=== PATIENT | male | born 1990 | race American Indian/Alaskan Native ===

== ENCOUNTER 2019-08-06 17:27 | Emergency (ER) | payer SELFPAY ==
[2019-08-06 17:32] VITALS: BP 131/81
[2019-08-06] MEDS ORDERED: ALBUTEROL 2.5 MG/3 ML NEBU IH ONE ×2 (18:05→18:06)
[2019-08-06] MEDS ORDERED: IPRATROPIUM 0.02% NEBU 2.5 ML IH ONE ×2 (18:06)
[2019-08-06] MEDS ORDERED: predniSONE 20 MG TAB PO ONE (18:36)
--- NOTE | 2019-08-06 19:02 | Emergency Department Report ---
ED Asthma HPI - General Chief Complaint: Adult Asthma Stated Complaint: ASTHMA ATTACK Time Seen by Provider: 08/06/19 18:35 Source: patient Mode of arrival: Ambulatory Limitations: No Limitations - History of Present Illness Initial Comments: Patient is a 29-year-old male with a past medical history of asthma who is presenting with wheezing and shortness of breath. Patient does have a minimal dry cough. Patient states symptoms have been present for the past 2-3 days. Patient states he's run out of his albuterol for his nebulizer machine as well as his albuterol inhaler. Patient believes that the weather may have been a trigger for his asthma. He denies fevers nausea vomiting diarrhea or neck stiffness. - Related Data Previous Rx's Medication Instructions Recorded Last Taken Type ALBUTEROL NEB's [Proventil 0.083% 2.5 mg IH TID PRN #20 neb 08/06/19 Unknown Rx NEBS] Albuterol INH(or & Nicu Only) 2 puff IH QID PRN #1 inhalation 08/06/19 Unknown Rx [ProAir HFA Inhaler] predniSONE [Deltasone] 20 mg PO QDAY #5 tab 08/06/19 Unknown Rx Allergies Allergy/AdvReac Type Severity Reaction Status Date / Time No Known Allergies Allergy Unverified 08/06/19 17:36 ED Review of Systems ROS: Stated complaint: ASTHMA ATTACK Other details as noted in HPI Comment: All other systems reviewed and negative ED Past Medical Hx - Past Medical History Hx Asthma: Yes - Surgical History Past Surgical History?: No - Social History Smoking Status: Never Smoker Substance Use Type: Alcohol - Medications Home Medications: Home Medications Medication Instructions Recorded Confirmed Last Taken Type ALBUTEROL NEB's [Proventil 0.083% 2.5 mg IH TID PRN #20 neb 08/06/19 Unknown Rx NEBS] Albuterol INH(or & Nicu Only) 2 puff IH QID PRN #1 inhalation 08/06/19 Unknown Rx [ProAir HFA Inhaler] predniSONE [Deltasone] 20 mg PO QDAY #5 tab 08/06/19 Unknown Rx ED Physical Exam - General Limitations: No Limitations General appearance: alert, in no apparent distress - Head Head exam: Present: atraumatic, normocephalic - Eye Eye exam: Present: normal appearance, PERRL, EOMI - ENT ENT exam: Present: mucous membranes moist - Neck Neck exam: Present: normal inspection - Respiratory Respiratory exam: Present: normal lung sounds bilaterally, wheezes. Absent: respiratory distress, rales, rhonchi - Cardiovascular Cardiovascular Exam: Present: regular rate, normal rhythm. Absent: systolic murmur, diastolic murmur, rubs, gallop - GI/Abdominal GI/Abdominal exam: Present: soft, normal bowel sounds - Rectal Rectal exam: Present: deferred - Extremities Exam Extremities exam: Present: normal inspection - Back Exam Back exam: Present: normal inspection - Neurological Exam Neurological exam: Present: alert, oriented X3 - Psychiatric Psychiatric exam: Present: normal affect, normal mood - Skin Skin exam: Present: warm, dry, intact, normal color. Absent: rash ED Course Vital Signs 08/06/19 08/06/19 17:30 18:08 Temperature 97.7 F Pulse Rate 138 H Pulse Rate [ 98 H Anterior Bilateral Throughout] Respiratory 32 H Rate Respiratory 18 Rate [Anterior Bilateral Throughout] Blood Pressure 131/81 [Left] O2 Sat by Pulse 95 Oximetry ED Medical Decision Making - Medical Decision Making Received neb treatment here in the emergency department is feeling much improved. Patient to be discharged home with medications for symptomatic relief. Critical care attestation.: If time is entered above; I have spent that time in minutes in the direct care of this critically ill patient, excluding procedure time. ED Disposition Clinical Impression: Acute asthma exacerbation Qualifiers: Asthma severity: moderate Asthma persistence: unspecified Qualified Code(s): J45.901 - Unspecified asthma with (acute) exacerbation Disposition: DC-01 TO HOME OR SELFCARE Is pt being admited?: No Does the pt Need Aspirin: No Condition: Stable Instructions: Asthma (ED) Referrals: SUJIT RHOADES MD [Staff Physician] - 3-5 Days Forms: Work/School Release Form(ED), Accompanied Note Time of Disposition: 19:02
== END 2019-08-06 19:30 | disposition home or self-care (01) ==
LOC: ED 17:27
DX: J45.901 Unspecified asthma with (acute) exacerbation (principal); Z79.899 Other long term (current) drug therapy
CPT/HCPCS: 94640; 99283; J7512; 94644

== ENCOUNTER 2019-10-05 17:31 | Emergency (ER) | payer SELFPAY ==
--- NOTE | 2019-10-05 17:46 | Emergency Department Report ---
Blank Doc - Documentation Documentation: 29-year-old male that presents with fever, tachycardia and URI symptoms. This initial assessment/diagnostic orders/clinical plan/treatment(s) is/are subject to change based on patient's health status, clinical progression and re- assessment by fellow clinical providers in the ED. Further treatment and workup at subsequent clinical providers discretion. Patient/guardians urged not to elope from the ED as their condition may be serious if not clinically assessed and managed. Initial orders include: 1- Patient sent to [facility] for further evaluation and treatment 2- CXR
--- NOTE | 2019-10-05 18:27 | XRay Report ---
CHEST 2 VIEWS INDICATION / CLINICAL INFORMATION: MAIN: COUGH; SUBJECT REPORT OF FEVER HIGHEST 100.2, WEAKNESS, PRODUCTIVE COUGH X 1 WEEK . COMPARISON: None available. FINDINGS: SUPPORT DEVICES: None. HEART / MEDIASTINUM: No significant abnormality. LUNGS / PLEURA: No significant pulmonary or pleural abnormality. No pneumothorax. ADDITIONAL FINDINGS: No significant additional findings. IMPRESSION: 1. No acute findings. Signer Name: Bernard Carvalho MD Signed: 10/05/2019 6:23 PM Workstation Name: [id number]
--- NOTE | 2019-10-05 20:50 | Emergency Department Report ---
Minor Respiratory - HPI Chief Complaint: Upper Respiratory Infection Stated Complaint: COLD SYM Time Seen by Provider: 10/05/19 17:46 Duration: 1 week Severity: mild Minor Respiratory: Yes Rhinorrhea, Yes Able to Tolerate Fluids, Yes Cough, Yes Sick Contacts, Yes Fever, No Sore Throat, No Ear Pain, No Hemoptysis, No Chest Pain, No Shortness of Breath Other History: This is a 29-year-old black male who presents to the emergency room with a productive cough for 1 week. Past medical history of asthma. Patient states he is using nebulizer and inhaler more than usual. States wheezing and fever resolved with treatments and Mucinex. States he cannot get rid of cough. He denies chest pain, wheezing, shortness of breath, nausea, vomiting, myalgia, or weakness. ED Review of Systems ROS: Stated complaint: COLD SYM Other details as noted in HPI Constitutional: denies: chills, fever ENT: denies: ear pain, throat pain Respiratory: cough. denies: shortness of breath, wheezing Cardiovascular: denies: chest pain, palpitations Gastrointestinal: denies: abdominal pain, nausea, diarrhea Musculoskeletal: denies: back pain, joint swelling, arthralgia Skin: denies: rash, lesions Neurological: denies: headache, weakness, paresthesias Psychiatric: denies: anxiety, depression ED Past Medical Hx - Past Medical History Hx Asthma: Yes - Surgical History Past Surgical History?: No - Social History Smoking Status: Never Smoker Substance Use Type: None - Medications Home Medications: Home Medications Medication Instructions Recorded Confirmed Last Taken Type ALBUTEROL NEB's [Proventil 0.083% 2.5 mg IH TID PRN #20 neb 08/06/19 Unknown Rx NEBS] Albuterol INH(or & Nicu Only) 2 puff IH QID PRN #1 inhalation 08/06/19 Unknown Rx [ProAir HFA Inhaler] Benzonatate [Tessalon Perles] 100 mg PO Q8HR PRN #30 capsule 10/05/19 Unknown Rx predniSONE [Deltasone] 20 mg PO QDAY #5 tab 10/05/19 Unknown Rx Minor Respiratory Exam - Exam General: Vital signs noted. No distress. Alert and acting appropriately. HEENT: Yes Moist Mucous Membranes, Yes Rhinorrhea (Mild congestion), No Pharyngeal Erythema, No Pharyngeal Exudates, No Conjuctival Injection, No Frontal Tenderness, No Maxillary Tenderness Ear: Neither TM Bulge, Neither TM Erythema, Neither EAC Pain, Neither EAC Discharge Neck: Yes Supple, No Adenopathy Lungs: Yes Good Air Exchange, No Wheezes, No Ronchi, No Stridor, No Cough, No Labored Respirations, No Retractions, No Use of Accessory Muscles, No Other Abnormal Lung Sounds Heart: Yes Regular, No Murmur Abdomen: Yes Normal Bowel Sounds, No Tenderness, No Peritoneal Signs Skin: No Rash, No Edema Neurologic: Alert and oriented, no deficits. Musculoskeletal: Unremarkable. ED Course Vital Signs 10/05/19 17:36 Temperature 99.6 F Pulse Rate 100 H Respiratory 20 Rate Blood Pressure 145/91 [Left] O2 Sat by Pulse 97 Oximetry ED Medical Decision Making - Radiology Data Radiology results: report reviewed CHEST 2 VIEWS INDICATION / CLINICAL INFORMATION: MAIN: COUGH; SUBJECT REPORT OF FEVER HIGHEST 100.2, WEAKNESS, PRODUCTIVE COUGH X 1 WEEK . COMPARISON: None available. FINDINGS: SUPPORT DEVICES: None. HEART / MEDIASTINUM: No significant abnormality. LUNGS / PLEURA: No significant pulmonary or pleural abnormality. No pneumothorax. ADDITIONAL FINDINGS: No significant additional findings. IMPRESSION: 1. No acute findings. - Medical Decision Making 29 y.o. male that presents with productive cough for 1 week. No distress noted. Vitals normal. Past medical history of h asthma. Patient is otherwise healthy patient with viral upper respiratory symptoms. He denies shortness of breath, chest pain, weakness, headache, or fever. No vocal changes or uvula deviation to be concern for [employer]. There is low suspicion of influenza, pneumonia, strep throat, or sinusitis. Chest x-ray ordered with no acute cardiopulmonary findings. Labs are deferred at this time. There are no indications for antibiotics at this time. Will start supportive medication such as cough suppressant and steroids. Continue using neb treatments and inhaler for symptomatic relief. Instructed to continue [id number] cold and flu medications, increase fluid intake, and wash hands frequently. Discharged home stable with strict return instructions. Follow up with Primary Care Provider in 2-3 days. Return to work tomorrow. Critical care attestation.: If time is entered above; I have spent that time in minutes in the direct care of this critically ill patient, excluding procedure time. ED Disposition Clinical Impression: Cough in adult patient, Nasal congestion with rhinorrhea, Bronchitis Disposition: DC-01 TO HOME OR SELFCARE Is pt being admited?: No Condition: Stable Instructions: Acute Bronchitis (ED) Additional Instructions: Increase fluid intake and rest. Wash hands frequently. Continue taking Tylenol or ibuprofen to control fever. Follow up with Primary Care Provider. Return to ER if fever, SOB, or difficulty breathing after 48 hours of supportive care. Prescriptions: predniSONE [Deltasone] 20 mg PO QDAY #5 tab Benzonatate [Tessalon Perles] 100 mg PO Q8HR PRN #30 capsule PRN Reason: Cough Referrals: [facility] [Outside] - 3-5 Days [facility] [Outside] - 3-[address] [facility] [Outside] - 3-5 Days Forms: Work/School Release Form(ED) Time of Disposition: 20:51
[2019-10-05 21:05] VITALS: BP 136/97
== END 2019-10-05 21:00 | disposition home or self-care (01) ==
LOC: ED 17:31
DX: J40 Bronchitis, not specified as acute or chronic (principal)
CPT/HCPCS: 71046; 99283

== ENCOUNTER 2019-11-14 20:56 | Emergency (ER) | payer SELFPAY ==
[2019-11-14] MEDS ORDERED: methylPREDNISolone Sod Succinate 125 MG/2 ML INJ IV ONE (21:10)
[2019-11-14] MEDS ORDERED: MAGNESIUM SULFATE 2 GM/50 ML BAG IV ONE (21:10)
[2019-11-14] MEDS ORDERED: ALBUTEROL 2.5 MG/3 ML NEBU IH ONE ×2 (21:10→21:13)
[2019-11-14] MEDS ORDERED: IPRATROPIUM 0.02% NEBU 2.5 ML IH ONE ×2 (21:10→21:13)
--- NOTE | 2019-11-14 21:15 | Emergency Department Report ---
ED Shortness of Breath HPI - General Chief Complaint: Dyspnea/Respdistress Stated Complaint: ASTHMA ATTACK Time Seen by Provider: 11/14/19 21:10 Source: patient Mode of arrival: Wheelchair Limitations: No Limitations - History of Present Illness Initial Comments: 29-year-old male with history of asthma presents to ED in respiratory distress. Patient states he was mopping at home with a sweeper and bleach. States inhaling the fumes triggered his asthma. Patient became short of breath. States he attempted to administer a neb treatment at home without relief, so patient came to the ED. Patient denies any coronavirus symptoms, including fever, cough, sore throat, body aches, diarrhea, loss of taste or smell. Patient states he has been quarantining. O2 sat 69% RA at triage. MD Complaint: "asthma attack" -: hour(s) (1) Severity: severe Consistency: constant Improves With: nothing Worsens With: nothing Known History Of: asthma Context: other (chemical exposure) Treatments Prior to Arrival: bronchodilator - Related Data Home Oxygen Therapy: No Previous Rx's Medication Instructions Recorded Last Taken Type ALBUTEROL NEB's [Proventil 0.083% 2.5 mg IH TID PRN #20 neb 08/06/19 Unknown Rx NEBS] Albuterol INH(or & Nicu Only) 2 puff IH QID PRN #1 inhalation 08/06/19 Unknown Rx [ProAir HFA Inhaler] Benzonatate [Tessalon Perles] 100 mg PO Q8HR PRN #30 capsule 10/05/19 Unknown Rx predniSONE [Deltasone] 20 mg PO QDAY #5 tab 10/05/19 Unknown Rx Albuterol Sulfate [Proventil Hfa] 2 puff IH Q4HR PRN #1 hfa.aer.ad 11/14/19 Unknown Rx predniSONE [Deltasone] 50 mg PO QDAY #5 tab 11/14/19 Unknown Rx Allergies Allergy/AdvReac Type Severity Reaction Status Date / Time No Known Allergies Allergy Unverified 08/06/19 17:36 ED Review of Systems ROS: Stated complaint: ASTHMA ATTACK Other details as noted in HPI Comment: All other systems reviewed and negative Constitutional: denies: chills, fever ENT: denies: throat pain, congestion Respiratory: shortness of breath, wheezing. denies: cough Gastrointestinal: denies: vomiting, diarrhea Musculoskeletal: denies: myalgia ED Past Medical Hx - Past Medical History Hx Asthma: Yes - Social History Smoking Status: Never Smoker Substance Use Type: None - Medications Home Medications: Home Medications Medication Instructions Recorded Confirmed Last Taken Type ALBUTEROL NEB's [Proventil 0.083% 2.5 mg IH TID PRN #20 neb 08/06/19 Unknown Rx NEBS] Albuterol INH(or & Nicu Only) 2 puff IH QID PRN #1 inhalation 08/06/19 Unknown Rx [ProAir HFA Inhaler] Benzonatate [Tessalon Perles] 100 mg PO Q8HR PRN #30 capsule 10/05/19 Unknown Rx predniSONE [Deltasone] 20 mg PO QDAY #5 tab 10/05/19 Unknown Rx Albuterol Sulfate [Proventil Hfa] 2 puff IH Q4HR PRN #1 hfa.aer.ad 11/14/19 Unknown Rx predniSONE [Deltasone] 50 mg PO QDAY #5 tab 11/14/19 Unknown Rx ED Physical Exam - General Limitations: No Limitations General appearance: alert, other (diaphoretic) - Head Head exam: Present: atraumatic, normocephalic - Eye Eye exam: Present: normal appearance, EOMI - ENT ENT exam: Present: mucous membranes moist - Neck Neck exam: Present: normal inspection - Respiratory Respiratory exam: Present: respiratory distress, decreased breath sounds (poor air movement) - Cardiovascular Cardiovascular Exam: Present: normal rhythm, tachycardia - GI/Abdominal GI/Abdominal exam: Present: soft. Absent: distended, tenderness - Extremities Exam Extremities exam: Present: normal inspection - Neurological Exam Neurological exam: Present: alert, oriented X3 - Psychiatric Psychiatric exam: Present: anxious - Skin Skin exam: Present: warm, dry, intact, normal color ED Course Vital Signs 11/14/19 11/14/19 11/14/19 21:15 22:33 23:33 Temperature 99 F 98.4 F Pulse Rate 130 H 96 H Pulse Rate [ 123 H Anterior Bilateral Throughout] Respiratory 20 18 Rate Respiratory 16 Rate [Anterior Bilateral Throughout] Blood Pressure 148/88 Blood Pressure 114/61 [Right] O2 Sat by Pulse 92 96 Oximetry - Reevaluation(s) Reevaluation #1: 11/14/19 21:59 Pt looks much better at this time. No longer tachypneic or diaphoretic. Lungs are CTAB, no wheezing or decreased breath sounds. ED Medical Decision Making - Medical Decision Making 29-year-old male with history of asthma presents with asthma exacerbation after inhaling chemicals that he was using to mop the floor. Patient was placed on 1 hour albuterol and Atrovent nebulizer treatment. He was also given a mag sulfate and Solu-Medrol. Patient improved dramatically, with normal O2 sats, a nd resolution of his respiratory distress. Patient currently feeling much better, talking on his cell phone. Will discharge home at this time. Will give prescriptions for prednisone and albuterol. Return precautions given. - Differential Diagnosis asthma exacerbation Critical Care Time: Yes Critical care time in (mins) excluding proc time.: 35 Critical care attestation.: If time is entered above; I have spent that time in minutes in the direct care of this critically ill patient, excluding procedure time. Critical Care Time: 35 min ED Disposition Clinical Impression: Acute asthma exacerbation Disposition: DC-01 TO HOME OR SELFCARE Is pt being admited?: No Condition: Stable Instructions: Asthma (ED) Prescriptions: predniSONE [Deltasone] 50 mg PO QDAY #5 tab Albuterol Sulfate [Proventil Hfa] 2 puff IH Q4HR PRN #1 hfa.aer.ad PRN Reason: Wheezing Referrals: PRIMARY CARE, [Primary Care Provider] - 3-5 Days
[2019-11-14 23:34] VITALS: BP 114/61
== END 2019-11-14 23:34 | disposition home or self-care (01) ==
LOC: ED 20:56
DX: J45.901 Unspecified asthma with (acute) exacerbation (principal); Z79.899 Other long term (current) drug therapy
CPT/HCPCS: 94640; 96365; 96366; 96375; 99283; J2930; J3475; 94644

== ENCOUNTER 2019-11-15 01:51 | Emergency (ER) | payer SELFPAY ==
[2019-11-15] MEDS ORDERED: IPRATROPIUM 0.02% NEBU 2.5 ML IH ONE (02:05)
[2019-11-15] MEDS ORDERED: ALBUTEROL 2.5 MG/3 ML NEBU IH ONE (02:05)
--- NOTE | 2019-11-15 02:10 | Emergency Department Report ---
<MIKE LACKEY - Last Filed: 11/15/19 03:46> ED Shortness of Breath HPI - General Chief Complaint: Dyspnea/Respdistress Stated Complaint: ASTHMA Time Seen by Provider: 11/15/19 02:04 - Related Data Previous Rx's Medication Instructions Recorded Last Taken Type ALBUTEROL NEB's [Proventil 0.083% 2.5 mg IH TID PRN #20 neb 08/06/19 Unknown Rx NEBS] Albuterol INH(or & Nicu Only) 2 puff IH QID PRN #1 inhalation 08/06/19 Unknown Rx [ProAir HFA Inhaler] Benzonatate [Tessalon Perles] 100 mg PO Q8HR PRN #30 capsule 10/05/19 Unknown Rx predniSONE [Deltasone] 20 mg PO QDAY #5 tab 10/05/19 Unknown Rx Albuterol Sulfate [Proventil Hfa] 2 puff IH Q4HR PRN #1 hfa.aer.ad 11/14/19 Unknown Rx predniSONE [Deltasone] 50 mg PO QDAY #5 tab 11/14/19 Unknown Rx EPINEPHrine [Epipen 2-Omer] 0.3 mg IM DAILY PRN #2 ml 11/15/19 Unknown Rx Allergies Allergy/AdvReac Type Severity Reaction Status Date / Time No Known Allergies Allergy Unverified 08/06/19 17:36 ED Past Medical Hx - Medications Home Medications: Home Medications Medication Instructions Recorded Confirmed Last Taken Type ALBUTEROL NEB's [Proventil 0.083% 2.5 mg IH TID PRN #20 neb 08/06/19 Unknown Rx NEBS] Albuterol INH(or & Nicu Only) 2 puff IH QID PRN #1 inhalation 08/06/19 Unknown Rx [ProAir HFA Inhaler] Benzonatate [Tessalon Perles] 100 mg PO Q8HR PRN #30 capsule 10/05/19 Unknown Rx predniSONE [Deltasone] 20 mg PO QDAY #5 tab 10/05/19 Unknown Rx Albuterol Sulfate [Proventil Hfa] 2 puff IH Q4HR PRN #1 hfa.aer.ad 11/14/19 Unknown Rx predniSONE [Deltasone] 50 mg PO QDAY #5 tab 11/14/19 Unknown Rx EPINEPHrine [Epipen 2-Omer] 0.3 mg IM DAILY PRN #2 ml 04/27/20 Unknown Rx ED Course - Reevaluation(s) Reevaluation #1: 11/15/19 03:47 Patient reassessed multiple times. No active wheezing. Lung sounds are clear. I have reexamined the patient multiple times and he feels much improved and he feels ready for discharge. He was already prescribed albuterol and steroids. I will add on epinephrine pen to be taken as needed. Patient counseled to avoid cleaning chemicals. Tachycardia is likely secondary to albuterol and epinephrine administration. ED Disposition Clinical Impression: Acute asthma exacerbation Disposition: DC-01 TO HOME OR SELFCARE Is pt being admited?: No Does the pt Need Aspirin: No Condition: Stable Instructions: Asthma (ED) Prescriptions: EPINEPHrine [Epipen 2-Omer] 0.3 mg IM DAILY PRN #2 ml PRN Reason: Allergic Reaction Referrals: PRIMARY CARE, [Primary Care Provider] - 3-5 Days [facility] [Provider Group] - 3-5 Days Forms: Work/School Release Form(ED) <VARUN HALL - Last Filed: 11/20/19 22:52> ED Shortness of Breath HPI - General Source: patient Mode of arrival: Ambulatory Limitations: No Limitations - History of Present Illness Initial Comments: 29-year-old male with history of asthma presents to ED with shortness of breath. Patient was just seen by myself earlier chiquis, discharged 3 hours ago from the ED for asthma exacerbation. Patient stated that it was triggered by inhaling bleach and Swiffer home restoration service cleaner that he used to mop the floor. Patient was given neb treatment, mag sulfate, Solu-Medrol for resolution of his symptoms. Patient was feeling much better at the time, with normal O2 sats and no further respiratory distress. Patient was discharged home. Patient states when he got back to his home, his asthma flared up again. He states he can still smell bleach fumes at home, began wheezing again, so he returned to the ED. Patient is not in nearly as much distress as he was during his initial visit. Complaint: shortness of breath, "asthma attack" -: minutes(s) (30) Severity: mild Improves With: bronchodilators Worsens With: other (chemical fume inhalation) Known History Of: asthma Associated Symptoms: denies other symptoms Treatments Prior to Arrival: bronchodilator - Related Data Home Oxygen Therapy: No ED Review of Systems ROS: Stated complaint: ASTHMA Other details as noted in HPI Comment: All other systems reviewed and negative Constitutional: fever Respiratory: shortness of breath, wheezing. denies: cough Cardiovascular: denies: chest pain ED Past Medical Hx - Past Medical History Previous Medical History?: Yes Hx Asthma: Yes - Surgical History Past Surgical History?: No - Social History Smoking Status: Never Smoker Substance Use Type: None ED Physical Exam - General Limitations: No Limitations General appearance: alert, in no apparent distress - Head Head exam: Present: atraumatic, normocephalic - Eye Eye exam: Present: normal appearance - ENT ENT exam: Present: mucous membranes moist - Neck Neck exam: Present: normal inspection - Respiratory Respiratory exam: Present: wheezes, other (slightly tachypneic) - Cardiovascular Cardiovascular Exam: Present: normal rhythm, tachycardia - GI/Abdominal GI/Abdominal exam: Present: soft. Absent: distended, tenderness - Extremities Exam Extremities exam: Present: normal inspection - Neurological Exam Neurological exam: Present: alert, oriented X3 - Psychiatric Psychiatric exam: Present: normal affect, normal mood - Skin Skin exam: Present: warm, dry, intact, normal color ED Course Vital Signs 11/15/19 11/15/19 11/15/19 01:54 02:30 02:40 Temperature 98.8 F Pulse Rate 118 H 121 H Pulse Rate [ Anterior Bilateral Bases ] Respiratory 18 20 22 Rate Respiratory Rate [Anterior Bilateral Bases ] Blood Pressure 155/73 O2 Sat by Pulse 96 95 Oximetry 11/15/19 11/15/19 11/15/19 02:45 02:46 03:15 Temperature 98.1 F Pulse Rate 111 H 111 H Pulse Rate [ 110 H Anterior Bilateral Bases ] Respiratory 17 Rate Respiratory 18 Rate [Anterior Bilateral Bases ] Blood Pressure 133/71 O2 Sat by Pulse 97 96 Oximetry 11/15/19 04:01 Temperature Pulse Rate 117 H Pulse Rate [ Anterior Bilateral Bases ] Respiratory 19 Rate Respiratory Rate [Anterior Bilateral Bases ] Blood Pressure 141/70 O2 Sat by Pulse 97 Oximetry ED Medical Decision Making - Radiology Data Radiology results: report reviewed, image reviewed - Medical Decision Making 29-year-old male with history of asthma presents to ED with shortness of breath. Patient was just seen by myself earlier chiquis, discharged 3 hours ago from the ED for asthma exacerbation. Patient stated that it was triggered by inhaling bleach and Swiffer home restoration service cleaner that he used to mop the floor. Patient was given neb treatment, mag sulfate, Solu-Medrol for resolution of his symptoms. Patient was feeling much better at the time, with normal O2 sats and no further respiratory distress. Patient was discharged home. Patient states when he got back to his home, his asthma flared up again. He states he can still smell bleach fumes at home, began wheezing again, so he returned to the ED. Patient is not in nearly as much distress as he was during his initial visit. Albuterol, atrovent nebs have been ordered. Pt given SC Epi as well. CXR unremarkable. Pt will require re-evaluation following treatment, so will sign out to Dr Lackey at this time to dispo the patient. - Differential Diagnosis asthma exacerbation Critical care attestation.: If time is entered above; I have spent that time in minutes in the direct care of this critically ill patient, excluding procedure time.
[2019-11-15] MEDS ORDERED: EPINEPHrine/PF (1:1,000) 1 MG/1 ML INJ SUB-Q ONE (02:11)
--- NOTE | 2019-11-15 02:37 | XRay Report ---
CHEST 1 VIEW 0212 INDICATION / CLINICAL INFORMATION: sob. COMPARISON: 10/05/2019 FINDINGS: SUPPORT DEVICES: None HEART / MEDIASTINUM: No significant abnormality. LUNGS / PLEURA: No significant pulmonary or pleural abnormality. No pneumothorax. ADDITIONAL FINDINGS: No significant additional findings. IMPRESSION: No significant acute abnormality Signer Name: Catrachito Zurita MD Signed: 11/15/2019 2:33 AM Workstation Name: [id number]
[2019-11-15 04:11] VITALS: BP 141/70
== END 2019-11-15 04:28 | disposition home or self-care (01) ==
LOC: ED 01:51
DX: J45.901 Unspecified asthma with (acute) exacerbation (principal); Z79.899 Other long term (current) drug therapy
CPT/HCPCS: 71045; 94640; 96372; 99283; J0171; 94644

== ENCOUNTER 2019-12-01 15:38 | Emergency (ER) | payer SELFPAY ==
[2019-12-01 15:43] VITALS: BP 132/79
--- NOTE | 2019-12-01 16:32 | Emergency Department Report ---
ED Asthma HPI - General Chief Complaint: Adult Asthma Stated Complaint: ASTHMA Time Seen by Provider: 12/01/19 16:23 Source: patient Mode of arrival: Ambulatory Limitations: No Limitations - History of Present Illness Initial Comments: This is a pleasant 29-year-old male who presents the emergency department with a chief complaint of tightness in his chest. Patient reports he was at home when he started to feel tightness in his chest and promptly came to the emergency department. Patient has past medical history of asthma and reports this feels similar to bronchospasm. He reports when he got outside into the hospital his symptoms resolved and now he is asymptomatic and feels normal. He denies any pain in his chest, shortness of breath, fever, cough, productive cough, chills, night sweats, headache, dizziness, blurry vision, nausea, vomiting, diarrhea or any other associated symptoms. He is currently on an albuterol inhaler, has an albuterol neb, and Advair at home. 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 - Related Data Previous Rx's Medication Instructions Recorded Last Taken Type ALBUTEROL NEB's [Proventil 0.083% 2.5 mg IH TID PRN #20 neb 08/06/19 Unknown Rx NEBS] Albuterol INH(or & Nicu Only) 2 puff IH QID PRN #1 inhalation 08/06/19 Unknown Rx [ProAir HFA Inhaler] Benzonatate [Tessalon Perles] 100 mg PO Q8HR PRN #30 capsule 10/05/19 Unknown Rx Albuterol Sulfate [Proventil Hfa] 2 puff IH Q4HR PRN #1 hfa.aer.ad 11/14/19 Unknown Rx predniSONE [Deltasone] 50 mg PO QDAY #5 tab 11/14/19 Unknown Rx EPINEPHrine [Epipen 2-Omer] 0.3 mg IM DAILY PRN #2 ml 11/15/19 Unknown Rx Ipratropium/Albuterol Sulfate 1 ampul IH Q4HR #20 ampul.neb 12/01/19 Unknown Rx [DUONEB *Not for PRN Use*] predniSONE [Deltasone] 20 mg PO QDAY #5 tab 12/01/19 Unknown Rx Allergies Allergy/AdvReac Type Severity Reaction Status Date / Time peanut Allergy Swelling Verified 12/01/19 15:40 ED Review of Systems ROS: Stated complaint: ASTHMA Other details as noted in HPI Comment: All other systems reviewed and negative Constitutional: denies: chills, fever Eyes: denies: eye pain, eye discharge, vision change ENT: denies: ear pain, throat pain Respiratory: see HPI, wheezing. denies: cough, shortness of breath Cardiovascular: denies: chest pain, palpitations Endocrine: no symptoms reported Gastrointestinal: denies: abdominal pain, nausea, diarrhea Genitourinary: denies: urgency, dysuria Musculoskeletal: denies: back pain, joint swelling, arthralgia, myalgia Skin: denies: rash, lesions Neurological: denies: headache, weakness, paresthesias Psychiatric: denies: anxiety, depression Hematological/Lymphatic: denies: easy bleeding, easy bruising ED Past Medical Hx - Past Medical History Previous Medical History?: Yes Hx Asthma: Yes - Surgical History Past Surgical History?: No - Social History Smoking Status: Never Smoker Substance Use Type: Alcohol - Medications Home Medications: Home Medications Medication Instructions Recorded Confirmed Last Taken Type ALBUTEROL NEB's [Proventil 0.083% 2.5 mg IH TID PRN #20 neb 08/06/19 Unknown Rx NEBS] Albuterol INH(or & Nicu Only) 2 puff IH QID PRN #1 inhalation 08/06/19 Unknown Rx [ProAir HFA Inhaler] Benzonatate [Tessalon Perles] 100 mg PO Q8HR PRN #30 capsule 10/05/19 Unknown Rx Albuterol Sulfate [Proventil Hfa] 2 puff IH Q4HR PRN #1 hfa.aer.ad 11/14/19 Unknown Rx predniSONE [Deltasone] 50 mg PO QDAY #5 tab 11/14/19 Unknown Rx EPINEPHrine [Epipen 2-Omer] 0.3 mg IM DAILY PRN #2 ml 11/15/19 Unknown Rx Ipratropium/Albuterol Sulfate 1 ampul IH Q4HR #20 ampul.neb 12/01/19 Unknown Rx [DUONEB *Not for PRN Use*] predniSONE [Deltasone] 20 mg PO QDAY #5 tab 12/01/19 Unknown Rx ED Physical Exam - General Limitations: No Limitations General appearance: alert, in no apparent distress - Head Head exam: Present: atraumatic, normocephalic - Eye Eye exam: Present: normal appearance, PERRL, EOMI Pupils: Present: normal accommodation - ENT ENT exam: Present: normal exam, normal orophraynx, mucous membranes moist, normal external ear exam - Neck Neck exam: Present: normal inspection, full ROM. Absent: tenderness, meningismus - Respiratory Respiratory exam: Present: normal lung sounds bilaterally, other (No increased work of breathing, no retractions, no tripoding,). Absent: respiratory dis tress, wheezes, rales, rhonchi, stridor, chest wall tenderness, accessory muscle use, decreased breath sounds - Cardiovascular Cardiovascular Exam: Present: regular rate, normal rhythm. Absent: systolic murmur, diastolic murmur, rubs, gallop - GI/Abdominal GI/Abdominal exam: Present: soft, normal bowel sounds - Rectal Rectal exam: Present: deferred - Extremities Exam Extremities exam: Present: normal inspection - Back Exam Back exam: Present: normal inspection - Neurological Exam Neurological exam: Present: alert, oriented X3 - Psychiatric Psychiatric exam: Present: normal affect, normal mood - Skin Skin exam: Present: warm, dry, intact, normal color. Absent: rash ED Course Vital Signs 12/01/19 15:40 Temperature 98.0 F Pulse Rate 96 H Respiratory 20 Rate Blood Pressure 132/79 O2 Sat by Pulse 97 Oximetry ED Medical Decision Making - Medical Decision Making Patient is PERC negative and a low risk by Wells criteria for PE. Lungs are clear and vital signs are normal. The patient reported when he got to the hospital his symptoms resolved and he felt much better. Did offer to give the patient a breathing treatment in the emergency department however he politely declined stating he felt better and he just wanted some oral steroids. Highly recommended that he follow-up with a media center director school as well as recommended frequent vacuuming of the home, holiday from his pet and to return to the emergency department any changing or worsening symptoms. He verbalized understanding the diagnosis, treatment plan and follow-up instructions and all his questions were answered. - Differential Diagnosis asthma, PE, pneumonia Critical care attestation.: If time is entered above; I have spent that time in minutes in the direct care of this critically ill patient, excluding procedure time. ED Disposition Clinical Impression: Acute asthma exacerbation Qualifiers: Asthma severity: mild Asthma persistence: unspecified Qualified Code(s): J45.901 - Unspecified asthma with (acute) exacerbation Disposition: DC TO HOME OR SELFCARE Is pt being admited?: No Condition: Stable Instructions: Asthma (ED) Prescriptions: predniSONE [Deltasone] 20 mg PO QDAY #5 tab Ipratropium/Albuterol Sulfate [DUONEB *Not for PRN Use*] 1 ampul IH Q4HR #20 ampul.neb Referrals: PRIMARY CARE, [Primary Care Provider] - 3-5 Days ARACELI SHINE MD [Staff Physician] - 3-5 Days Time of Disposition: 16:31
== END 2019-12-01 16:45 | disposition home or self-care (01) ==
LOC: ED 15:38
DX: J45.901 Unspecified asthma with (acute) exacerbation (principal); Z79.899 Other long term (current) drug therapy; Z91.010 Allergy to peanuts
CPT/HCPCS: 99282

== ENCOUNTER 2019-12-31 11:51 | Emergency (ER) | payer SELFPAY ==
[2019-12-31 11:58] VITALS: BP 130/84
[2019-12-31] MEDS ORDERED: MAGNESIUM SULFATE 2 GM/50 ML BAG IV ONE (12:27)
[2019-12-31] MEDS ORDERED: ALBUTEROL 2.5 MG/3 ML NEBU IH ONE (12:27)
[2019-12-31] MEDS ORDERED: IPRATROPIUM 0.02% NEBU 2.5 ML IH ONE (12:27)
[2019-12-31] MEDS ORDERED: dexAMETHasone 20 MG/5 ML VIAL IV ONE (12:27)
--- NOTE | 2019-12-31 12:31 | Emergency Department Report ---
ED Asthma HPI - General Chief Complaint: Adult Asthma Stated Complaint: ASTHMA Time Seen by Provider: 12/31/19 12:27 Source: patient Mode of arrival: Ambulatory Limitations: No Limitations - History of Present Illness Initial Comments: 29-year-old -[place] male presents to the emergency room stating he has a asthma attack that started this morning. Patient states he has been using his albuterol without much help. Patient states he thinks his trigger is his dog dander. Patient denies any fever chills no nausea no vomiting no chest pain. MD Complaint: "asthma attack", wheezing -: This morning Severity: moderate Context: pet exposure Associated Symptoms: none Treatments Prior to Arrival: inhaled bronchodilator - Related Data Current Asthma Therapy: inhaled bronchodilator Previous Rx's Medication Instructions Recorded Last Taken Type ALBUTEROL NEB's [Proventil 0.083% 2.5 mg IH TID PRN #20 neb 08/06/19 Unknown Rx NEBS] Albuterol INH(or & Nicu Only) 2 puff IH QID PRN #1 inhalation 08/06/19 Unknown Rx [ProAir HFA Inhaler] Benzonatate [Tessalon Perles] 100 mg PO Q8HR PRN #30 capsule 10/05/19 Unknown Rx predniSONE [Deltasone] 50 mg PO QDAY #5 tab 11/14/19 Unknown Rx EPINEPHrine [Epipen 2-Omer] 0.3 mg IM DAILY PRN #2 ml 11/15/19 Unknown Rx Ipratropium/Albuterol Sulfate 1 ampul IH Q4HR #20 ampul.neb 12/01/19 Unknown Rx [DUONEB *Not for PRN Use*] predniSONE [Deltasone] 20 mg PO QDAY #5 tab 12/01/19 Unknown Rx Albuterol Sulfate [Proventil Hfa] 2 puff IH Q4HR PRN #1 hfa.aer.ad 12/31/19 Unknown Rx predniSONE [Deltasone] 20 mg PO QDAY 5 Days #5 tab 12/31/19 Unknown Rx Allergies Allergy/AdvReac Type Severity Reaction Status Date / Time peanut Allergy Swelling Verified 12/31/19 11:51 ED Review of Systems ROS: Stated complaint: ASTHMA Other details as noted in HPI Comment: All other systems reviewed and negative ED Past Medical Hx - Past Medical History Hx Asthma: Yes - Surgical History Past Surgical History?: No - Social History Smoking Status: Never Smoker Substance Use Type: None - Medications Home Medications: Home Medications Medication Instructions Recorded Confirmed Last Taken Type ALBUTEROL NEB's [Proventil 0.083% 2.5 mg IH TID PRN #20 neb 08/06/19 Unknown Rx NEBS] Albuterol INH(or & Nicu Only) 2 puff IH QID PRN #1 inhalation 08/06/19 Unknown Rx [ProAir HFA Inhaler] Benzonatate [Tessalon Perles] 100 mg PO Q8HR PRN #30 capsule 10/05/19 Unknown Rx predniSONE [Deltasone] 50 mg PO QDAY #5 tab 11/14/19 Unknown Rx EPINEPHrine [Epipen 2-Omer] 0.3 mg IM DAILY PRN #2 ml 11/15/19 Unknown Rx Ipratropium/Albuterol Sulfate 1 ampul IH Q4HR #20 ampul.neb 12/01/19 Unknown Rx [DUONEB *Not for PRN Use*] predniSONE [Deltasone] 20 mg PO QDAY #5 tab 12/01/19 Unknown Rx Albuterol Sulfate [Proventil Hfa] 2 puff IH Q4HR PRN #1 hfa.aer.ad 12/31/19 Unknown Rx predniSONE [Deltasone] 20 mg PO QDAY 5 Days #5 tab 12/31/19 Unknown Rx ED Physical Exam - General Limitations: No Limitations General appearance: alert, in no apparent distress - Head Head exam: Present: atraumatic, normocephalic - Eye Eye exam: Present: normal appearance - Respiratory Respiratory exam: Present: wheezes, rhonchi - Cardiovascular Cardiovascular Exam: Present: regular rate, normal rhythm. Absent: systolic murmur, diastolic murmur, rubs, gallop - GI/Abdominal GI/Abdominal exam: Present: soft, normal bowel sounds - Neurological Exam Neurological exam: Present: alert, oriented X3, normal gait - Psychiatric Psychiatric exam: Present: normal affect, normal mood - Skin Skin exam: Present: warm, dry, intact, normal color. Absent: rash ED Course Vital Signs 12/31/19 12/31/19 12/31/19 11:56 11:57 12:41 Pulse Rate 96 H 114 H Pulse Rate [ 86 Anterior Bilateral Throughout] Respiratory 22 Rate Respiratory 18 Rate [Anterior Bilateral Throughout] Blood Pressure 130/84 [Left] O2 Sat by Pulse 97 Oximetry - Reevaluation(s) Reevaluation #1: 12/31/19 15:12 Patient reports that he feels much better. ED Medical Decision Making - Medical Decision Making 29-year-old -[place] male presents to the emergency room stating he has a asthma attack that started this morning. Patient states he has been using his albuterol without much help. Patient states he thinks his trigger is his dog dander. Patient denies any fever chills no nausea no vomiting no chest pain. IV, normal saline 1 L, magnesium 2 mg IV, dexamethasone 10 mg IV, Atrovent 1 mg inhalation and albuterol 10 mg inhalation. Patient be reevaluated after medications has administered. Critical care attestation.: If time is entered above; I have spent that time in minutes in the direct care of this critically ill patient, excluding procedure time. ED Disposition Clinical Impression: Asthma exacerbation attacks Disposition: TO HOME OR SELFCARE Is pt being admited?: No Does the pt Need Aspirin: No Condition: Stable Additional Instructions: Complete prednisone as prescribed use the inhaler as prescribed. Try to avoid your triggers. Follow-up with a primary care provider. Prescriptions: predniSONE [Deltasone] 20 mg PO QDAY 5 Days #5 tab Albuterol Sulfate [Proventil Hfa] 2 puff IH Q4HR PRN #1 hfa.aer.ad PRN Reason: Wheezing Referrals: PRIMARY CAREMD [Primary Care Provider] - 3-5 Days SUJIT RHOADES MD [Staff Physician] - 3-5 Days Forms: Work/School Release Form(ED)
== END 2019-12-31 15:45 | disposition home or self-care (01) ==
LOC: ED 11:51
DX: J45.901 Unspecified asthma with (acute) exacerbation (principal); Z79.899 Other long term (current) drug therapy; Z91.010 Allergy to peanuts
CPT/HCPCS: 94640; 96365; 96375; 99283; J1100; J3475; 94644

== ENCOUNTER 2020-01-28 09:42 | Emergency (ER) | payer SELFPAY ==
[2020-01-28] MEDS ORDERED: IPRATROPIUM/ALBUTEROL SULFATE 3 ML AMPUL.NEB IH ONE ×2 (09:46→09:54)
[2020-01-28] MEDS ORDERED: ALBUTEROL 2.5 MG/3 ML NEBU IH ONE ×3 (09:46→11:37)
[2020-01-28] MEDS ORDERED: methylPREDNISolone Sod Succinate 125 MG/2 ML INJ ONE (10:15)
[2020-01-28] MEDS ORDERED: methylPREDNISolone Sod Succinate 125 MG/2 ML INJ IV ONE (10:16)
[2020-01-28] MEDS ORDERED: MAGNESIUM SULFATE 2 GM/50 ML BAG IV ONE (10:19)
[2020-01-28] MEDS ORDERED: SODIUM CHLORIDE 0.9% 1000 ML 1,000 ML IV ONE (10:19)
[2020-01-28] MEDS ORDERED: IPRATROPIUM 0.02% NEBU 2.5 ML IH ONE (10:19)
--- NOTE | 2020-01-28 10:53 | XRay Report ---
CHEST 1 VIEW 01/28/2020 9:46 AM INDICATION / CLINICAL INFORMATION: SOB, asthma. COMPARISON: 11/15/2019 FINDINGS: SUPPORT DEVICES: None. HEART / MEDIASTINUM: No significant abnormality. LUNGS / PLEURA: No significant pulmonary or pleural abnormality. No pneumothorax. ADDITIONAL FINDINGS: No significant additional findings. IMPRESSION: 1. No acute findings. Signer Name: Enrique Amaya MD Signed: 01/28/2020 10:49 AM Workstation Name: [id number]
--- NOTE | 2020-01-28 11:41 | Emergency Department Report ---
HPI - General Chief Complaint: Adult Asthma Time Seen by Provider: 01/28/20 10:18 - HPI HPI: Room 26 The patient is a 30-year-old male present with a chief complaint of asthma exacerbation. Patient states he awakened this morning feeling short of breath with his asthma. Patient states he used his inhaler and a nebulizer but it did not help. Patient states he still had tightness and came to the emergency department. Patient denies fever or cough. ED Past Medical Hx - Past Medical History Previous Medical History?: Yes Hx Asthma: Yes - Surgical History Additional Surgical History: "Fluid drained from right lung" at age 8 - Family History Family history: no significant - Social History Smoking Status: Former Smoker (None times years) Substance Use Type: None (Denies illicit drug use), Alcohol (Occasional) - Medications Home Medications: Home Medications Medication Instructions Recorded Confirmed Last Taken Type ALBUTEROL NEB's [Proventil 0.083% 2.5 mg IH TID PRN #20 neb 08/06/19 Unknown Rx NEBS] Albuterol Mdi (or & Nicu Only) 2 puff IH QID PRN #1 inhalation 08/06/19 Unknown Rx [ProAir HFA Inhaler] Benzonatate [Tessalon Perles] 100 mg PO Q8HR PRN #30 capsule 10/05/19 Unknown Rx predniSONE [Deltasone] 50 mg PO QDAY #5 tab 11/14/19 Unknown Rx EPINEPHrine [Epipen 2-Omer] 0.3 mg IM DAILY PRN #2 ml 11/15/19 Unknown Rx Ipratropium/Albuterol Sulfate 1 ampul IH Q4HR #20 ampul.neb 12/01/19 Unknown Rx [DUONEB *Not for PRN Use*] predniSONE [Deltasone] 20 mg PO QDAY #5 tab 12/01/19 Unknown Rx Albuterol Sulfate [Proventil Hfa] 2 puff IH Q4HR PRN #1 hfa.aer.ad 12/31/19 Unknown Rx predniSONE [Deltasone] 20 mg PO QDAY 5 Days #5 tab 12/31/19 Unknown Rx Albuterol Sulfate [Albuterol 0.63% 0.63 mg IH TID PRN #90 ml 01/28/20 Unknown Rx NEBS] Albuterol Sulfate [Proair 90 mcg IH QID PRN #1 aer.pow.ba 01/28/20 Unknown Rx Respiclick] Prednisone [predniSONE 10 mg 10 mg PO .TAPER #1 tab.ds.pk 01/28/20 Unknown Rx (6-Day Pack, 21 Tabs)] ED Review of Systems ROS: Stated complaint: ASTHMA ATTACK Other details as noted in HPI Constitutional: denies: fever Respiratory: no symptoms reported, wheezing. denies: cough Cardiovascular: denies: chest pain Endocrine: no symptoms reported Physical Exam - Physical Exam Vital Signs: Vital Signs 01/28/20 01/28/20 09:52 11:11 Temperature 97.6 F Pulse Rate 90 Respiratory 26 H 18 Rate Blood Pressure 112/78 O2 Sat by Pulse 95 94 Oximetry Physical Exam: GENERAL: The patient is well-developed well-nourished male sitting on stretcher not appearing to be in acute distress. [] HEENT: Normocephalic. Atraumatic. Extraocular motions are intact. Patient has moist mucous membranes. NECK: Supple. Trachea midline CHEST/LUNGS: Faint wheezing diffusely. There is no respiratory distress noted. HEART/CARDIOVASCULAR: Regular. There is no tachycardia. There is no gallop rub or murmur. ABDOMEN: Abdomen is soft, nontender. Patient has normal bowel sounds. There is no abdominal distention. SKIN: There is no rash. There is no edema. There is no diaphoresis. NEURO: The patient is awake, alert, and oriented. The patient is cooperative. The patient has normal speech MUSCULOSKELETAL: There is no evidence of acute injury. ED Course Vital Signs 01/28/20 01/28/20 09:52 11:11 Temperature 97.6 F Pulse Rate 90 Respiratory 26 H 18 Rate Blood Pressure 112/78 O2 Sat by Pulse 95 94 Oximetry - Reevaluation(s) Reevaluation #1: 01/28/20 13:09 Patient improved and feels comfortable. Lungs clear to auscultation bilaterally ED Medical Decision Making - Radiology Data Radiology results: report reviewed (Chest x-ray), image reviewed (Chest x-ray) interpreted by me: Chest x-ray-no focal infiltrates, no pneumothorax - Differential Diagnosis Acute asthma exacerbation, bronchitis Critical care attestation.: If time is entered above; I have spent that time in minutes in the direct care of this critically ill patient, excluding procedure time. ED Disposition Clinical Impression: Acute asthma exacerbation, Shortness of breath Disposition: DC-01 TO HOME OR SELFCARE Is pt being admited?: No Does the pt Need Aspirin: No Condition: Stable Instructions: Asthma (ED) Additional Instructions: Return to the emergency department should you develop worsening symptoms, inability to tolerate food or liquids, high fever or any other concerns Prescriptions: Albuterol Sulfate [Albuterol 0.63% NEBS] 0.63 mg IH TID PRN #90 ml PRN Reason: Wheezing Prednisone [predniSONE 10 mg (6-Day Pack, 21 Tabs)] 10 mg PO .TAPER #1 tab.ds.pk Albuterol Sulfate [Proair Respiclick] 90 mcg IH QID PRN #1 aer.pow.ba PRN Reason: Wheezing Referrals: LUIS PHELAN MD [Staff Physician] - 3-5 Days Time of Disposition: 13:11
[2020-01-28 13:58] VITALS: BP 133/85
== END 2020-01-28 13:21 | disposition home or self-care (01) ==
LOC: ED 09:42
DX: J45.901 Unspecified asthma with (acute) exacerbation (principal); Z87.891 Personal history of nicotine dependence; Z91.010 Allergy to peanuts
CPT/HCPCS: 71045; 94640; 96365; 96375; 99284; J2930; J3475; J7030; 94644

== ENCOUNTER 2020-04-05 13:21 | Emergency (ER) | payer SELFPAY ==
[2020-04-05] MEDS ORDERED: ALBUTEROL 2.5 MG/3 ML NEBU IH ONE ×2 (13:31→16:22)
[2020-04-05] MEDS ORDERED: dexAMETHasone 20 MG/5 ML VIAL IM ONE (13:31)
[2020-04-05] MEDS ORDERED: IPRATROPIUM 0.02% NEBU 2.5 ML IH ONE (13:31)
--- NOTE | 2020-04-05 13:32 | Emergency Department Report ---
Blank Doc - Documentation Documentation: 30-year-old male that presents with SOB and wheezing. This initial assessment/diagnostic orders/clinical plan/treatment(s) is/are subject to change based on patient's health status, clinical progression and re- assessment by fellow clinical providers in the ED. Further treatment and workup at subsequent clinical providers discretion. Patient/guardians urged not to elope from the ED as their condition may be serious if not clinically assessed and managed. Initial orders include: 1- Patient sent to [facility] for further evaluation and treatment 2- breathing treatment with steroids
--- NOTE | 2020-04-05 15:07 | Emergency Department Report ---
ED General Adult HPI - General Chief complaint: Adult Asthma Stated complaint: ASTHMA Time Seen by Provider: 04/05/20 13:31 Source: patient Mode of arrival: Ambulatory Limitations: No Limitations - History of Present Illness Initial comments: 30-year-old -Cypriot male patient presents with complaints of asthma exacerbation x this morning. Patient reports he has a history of asthma and tried his albuterol inhaler and nebulizer without success today. He complains of wheezing and tightness in the chest, but denies any cough, hemoptysis, fever /chills/sweats, nausea/vomiting/diarrhea, congestion, or recent known sick contacts. Patient also denies any history of intubation due to his asthma - Related Data Previous Rx's Medication Instructions Recorded Last Taken Type ALBUTEROL NEB's [Proventil 0.083% 2.5 mg IH TID PRN #20 neb 08/06/19 Unknown Rx NEBS] Benzonatate [Tessalon Perles] 100 mg PO Q8HR PRN #30 capsule 10/05/19 Unknown Rx predniSONE [Deltasone] 50 mg PO QDAY #5 tab 11/14/19 Unknown Rx EPINEPHrine [Epipen 2-Omer] 0.3 mg IM DAILY PRN #2 ml 11/15/19 Unknown Rx Ipratropium/Albuterol Sulfate 1 ampul IH Q4HR #20 ampul.neb 12/01/19 Unknown Rx [DUONEB *Not for PRN Use*] predniSONE [Deltasone] 20 mg PO QDAY #5 tab 12/01/19 Unknown Rx Albuterol Sulfate [Proventil Hfa] 2 puff IH Q4HR PRN #1 hfa.aer.ad 12/31/19 Unknown Rx predniSONE [Deltasone] 20 mg PO QDAY 5 Days #5 tab 12/31/19 Unknown Rx Albuterol Sulfate [Proair 90 mcg IH QID PRN #1 aer.pow.ba 01/28/20 Unknown Rx Respiclick] Albuterol Mdi (or & Nicu Only) 2 puff IH QID PRN #1 inhalation 04/05/20 Unknown Rx [ProAir HFA Inhaler] Albuterol Sulfate [Albuterol 0.63% 0.63 mg IH TID PRN #90 ml 04/05/20 Unknown Rx NEBS] Prednisone [predniSONE 10 mg 10 mg PO .TAPER #1 tab.ds.pk 04/05/20 Unknown Rx (6-Day Pack, 21 Tabs)] Allergies Allergy/AdvReac Type Severity Reaction Status Date / Time peanut Allergy Swelling Verified 04/05/20 13:23 ED Review of Systems ROS: Stated complaint: ASTHMA Other details as noted in HPI Constitutional: denies: chills, diaphoresis, fever, malaise, weakness Respiratory: shortness of breath. denies: cough Cardiovascular: denies: chest pain Endocrine: denies: excessive sweating Gastrointestinal: denies: abdominal pain, nausea, vomiting, diarrhea Skin: denies: rash, change in color Neurological: denies: headache ED Past Medical Hx - Past Medical History Hx Asthma: Yes - Surgical History Additional Surgical History: "Fluid drained from right lung" at age 8 - Social History Smoking Status: Never Smoker Substance Use Type: None - Medications Home Medications: Home Medications Medication Instructions Recorded Confirmed Last Taken Type ALBUTEROL NEB's [Proventil 0.083% 2.5 mg IH TID PRN #20 neb 08/06/19 Unknown Rx NEBS] Benzonatate [Tessalon Perles] 100 mg PO Q8HR PRN #30 capsule 10/05/19 Unknown Rx predniSONE [Deltasone] 50 mg PO QDAY #5 tab 11/14/19 Unknown Rx EPINEPHrine [Epipen 2-Omer] 0.3 mg IM DAILY PRN #2 ml 11/15/19 Unknown Rx Ipratropium/Albuterol Sulfate 1 ampul IH Q4HR #20 ampul.neb 12/01/19 Unknown Rx [DUONEB *Not for PRN Use*] predniSONE [Deltasone] 20 mg PO QDAY #5 tab 12/01/19 Unknown Rx Albuterol Sulfate [Proventil Hfa] 2 puff IH Q4HR PRN #1 hfa.aer.ad 12/31/19 Unknown Rx predniSONE [Deltasone] 20 mg PO QDAY 5 Days #5 tab 12/31/19 Unknown Rx Albuterol Sulfate [Proair 90 mcg IH QID PRN #1 aer.pow.ba 01/28/20 Unknown Rx Respiclick] Albuterol Mdi (or & Nicu Only) 2 puff IH QID PRN #1 inhalation 04/05/20 Unknown Rx [ProAir HFA Inhaler] Albuterol Sulfate [Albuterol 0.63% 0.63 mg IH TID PRN #90 ml 04/05/20 Unknown Rx NEBS] Prednisone [predniSONE 10 mg 10 mg PO .TAPER #1 tab.ds.pk 04/05/20 Unknown Rx (6-Day Pack, 21 Tabs)] ED Physical Exam - General Limitations: No Limitations General appearance: alert, in no apparent distress - Head Head exam: Present: atraumatic, normocephalic - Eye Eye exam: Present: normal appearance. Absent: scleral icterus - Neck Neck exam: Present: normal inspection - Respiratory Respiratory exam: Present: normal lung sounds bilaterally, wheezes. Absent: respiratory distress, rales, rhonchi, chest wall tenderness - Cardiovascular Cardiovascular Exam: Present: regular rate, normal rhythm - GI/Abdominal GI/Abdominal exam: Present: soft. Absent: tenderness - Extremities Exam Extremities exam: Present: normal inspection - Back Exam Back exam: Present: normal inspection - Neurological Exam Neurological exam: Present: alert, oriented X3, normal gait - Psychiatric Psychiatric exam: Present: normal affect, normal mood - Skin Skin exam: Present: warm, dry, intact, normal color. Absent: rash ED Course Vital Signs 04/05/20 04/05/20 04/05/20 13:25 16:35 17:51 Temperature 98.1 F Pulse Rate 98 H 86 Pulse Rate [ 87 Posterior Bilateral Throughout] Respiratory 22 18 Rate Respiratory 18 Rate [Posterior Bilateral Throughout] Blood Pressure 130/80 Blood Pressure 128/68 [Right] O2 Sat by Pulse 96 98 Oximetry ED Medical Decision Making - Medical Decision Making 30-year-old -Cypriot male patient presents with complaints of asthma exacerbation x this morning. Patient reports he has a history of asthma and tried his albuterol inhaler and nebulizer without success today. He complains of wheezing and tightness in the chest, but denies any cough, hemoptysis, fever/chills/sweats, nausea/vomiting/diarrhea, congestion, or recent known sick contacts. Patient also denies any history of intubation due to his asthma Patient has been seen here multiple times in the past for asthma exacerbations. He denies any red flag symptoms. After Decadron and continuous DuoNeb, patient states he still has some tightness and wheezing in the chest. Patient given a second continuous albuterol neb and states his wheezing and chest tightness has resolved. He is well-appearing, his vitals are normal, and he is stable for discharge home. Recommend follow-up with primary care provider. Refills given for albuterol and albuterol nebulizer solution. Patient also given prednisone Dosepak. Strict return precautions were discussed in detail with patient who verbalizes understanding. Critical care attestation.: If time is entered above; I have spent that time in minutes in the direct care of this critically ill patient, excluding procedure time. ED Disposition Clinical Impression: Asthma exacerbation Qualifiers: Asthma severity: moderate Asthma persistence: persistent Qualified Code(s): J45.41 - Moderate persistent asthma with (acute) exacerbation Disposition: TO HOME OR SELFCARE Is pt being admited?: No Condition: Stable Instructions: Asthma (ED) Prescriptions: Albuterol Sulfate [Albuterol 0.63% NEBS] 0.63 mg IH TID PRN #90 ml PRN Reason: Wheezing Prednisone [predniSONE 10 mg (6-Day Pack, 21 Tabs)] 10 mg PO .TAPER #1 tab.ds.pk Albuterol Mdi (or & Nicu Only) [ProAir HFA Inhaler] 2 puff IH QID PRN #1 inhalation PRN Reason: Shortness Of Breath Referrals: PRIMARY CARE, [Primary Care Provider] - 3-5 Days
[2020-04-05 16:35] VITALS: BP 128/68
== END 2020-04-05 17:57 | disposition home or self-care (01) ==
LOC: ED 13:21
DX: J45.909 Unspecified asthma, uncomplicated (principal); Z79.899 Other long term (current) drug therapy; Z91.010 Allergy to peanuts
CPT/HCPCS: 94640; 96372; 99282; J1100; 94644

== ENCOUNTER 2020-04-10 01:40 | Emergency (ER) | payer SELFPAY ==
[2020-04-10 01:47] VITALS: BP 121/79
[2020-04-10] MEDS ORDERED: IPRATROPIUM 0.02% NEBU 2.5 ML IH ONE (01:55)
[2020-04-10] MEDS ORDERED: ALBUTEROL 2.5 MG/3 ML NEBU IH ONE (01:55)
[2020-04-10] MEDS ORDERED: SODIUM CHLORIDE 0.9% 1000 ML 1,000 ML IV ONE (01:56)
[2020-04-10] MEDS ORDERED: methylPREDNISolone Sod Succinate 125 MG/2 ML INJ IV ONE (01:56)
[2020-04-10] MEDS ORDERED: MAGNESIUM SULFATE 2 GM/50 ML BAG IV ONE (01:56)
[2020-04-10] MEDS ORDERED: diphenhydrAMINE 50 MG/ML VIAL IV STA (02:00)
--- NOTE | 2020-04-10 02:04 | Emergency Department Report ---
ED Asthma HPI - General Chief Complaint: Adult Asthma Stated Complaint: DIFFICULTY IN BREATHING Time Seen by Provider: 04/10/20 01:56 Source: patient Mode of arrival: Ambulatory Limitations: No Limitations - History of Present Illness MD Complaint: "asthma attack", shortness of breath -: Gradual, hour(s) (3) Asthma History: childhood onset Severity: moderate Context: none known Associated Symptoms: none Treatments Prior to Arrival: inhaled bronchodilator - Related Data Current Asthma Therapy: inhaled bronchodilator Previous Rx's Medication Instructions Recorded Last Taken Type ALBUTEROL NEB's [Proventil 0.083% 2.5 mg IH TID PRN #20 neb 08/06/19 Unknown Rx NEBS] Benzonatate [Tessalon Perles] 100 mg PO Q8HR PRN #30 capsule 10/05/19 Unknown Rx predniSONE [Deltasone] 50 mg PO QDAY #5 tab 11/14/19 Unknown Rx EPINEPHrine [Epipen 2-Omer] 0.3 mg IM DAILY PRN #2 ml 11/15/19 Unknown Rx Ipratropium/Albuterol Sulfate 1 ampul IH Q4HR #20 ampul.neb 12/01/19 Unknown Rx [DUONEB *Not for PRN Use*] predniSONE [Deltasone] 20 mg PO QDAY #5 tab 12/01/19 Unknown Rx Albuterol Sulfate [Proventil Hfa] 2 puff IH Q4HR PRN #1 hfa.aer.ad 12/31/19 Unknown Rx predniSONE [Deltasone] 20 mg PO QDAY 5 Days #5 tab 12/31/19 Unknown Rx Albuterol Sulfate [Proair 90 mcg IH QID PRN #1 aer.pow.ba 01/28/20 Unknown Rx Respiclick] Albuterol Mdi (or & Nicu Only) 2 puff IH QID PRN #1 inhalation 04/05/20 Unknown Rx [ProAir HFA Inhaler] Albuterol Sulfate [Albuterol 0.63% 0.63 mg IH TID PRN #90 ml 04/05/20 Unknown Rx NEBS] Prednisone [predniSONE 10 mg 10 mg PO .TAPER #1 tab.ds.pk 04/05/20 Unknown Rx (6-Day Pack, 21 Tabs)] Montelukast [Singulair] 10 mg PO QPM #14 tablet 04/10/20 Unknown Rx predniSONE [Deltasone] 50 mg PO QDAY #5 tab 04/10/20 Unknown Rx Allergies Allergy/AdvReac Type Severity Reaction Status Date / Time peanut Allergy Swelling Verified 04/05/20 13:23 ED Review of Systems ROS: Stated complaint: DIFFICULTY IN BREATHING Other details as noted in HPI Comment: All other systems reviewed and negative ED Past Medical Hx - Past Medical History Previous Medical History?: Yes Hx Asthma: Yes - Surgical History Past Surgical History?: Yes Additional Surgical History: "Fluid drained from right lung" at age 8 - Social History Smoking Status: Never Smoker Substance Use Type: None - Medications Home Medications: Home Medications Medication Instructions Recorded Confirmed Last Taken Type ALBUTEROL NEB's [Proventil 0.083% 2.5 mg IH TID PRN #20 neb 08/06/19 Unknown Rx NEBS] Benzonatate [Tessalon Perles] 100 mg PO Q8HR PRN #30 capsule 10/05/19 Unknown Rx predniSONE [Deltasone] 50 mg PO QDAY #5 tab 11/14/19 Unknown Rx EPINEPHrine [Epipen 2-Omer] 0.3 mg IM DAILY PRN #2 ml 11/15/19 Unknown Rx Ipratropium/Albuterol Sulfate 1 ampul IH Q4HR #20 ampul.neb 12/01/19 Unknown Rx [DUONEB *Not for PRN Use*] predniSONE [Deltasone] 20 mg PO QDAY #5 tab 12/01/19 Unknown Rx Albuterol Sulfate [Proventil Hfa] 2 puff IH Q4HR PRN #1 hfa.aer.ad 12/31/19 Unknown Rx predniSONE [Deltasone] 20 mg PO QDAY 5 Days #5 tab 12/31/19 Unknown Rx Albuterol Sulfate [Proair 90 mcg IH QID PRN #1 aer.pow.ba 01/28/20 Unknown Rx Respiclick] Albuterol Mdi (or & Nicu Only) 2 puff IH QID PRN #1 inhalation 04/05/20 Unknown Rx [ProAir HFA Inhaler] Albuterol Sulfate [Albuterol 0.63% 0.63 mg IH TID PRN #90 ml 04/05/20 Unknown Rx NEBS] Prednisone [predniSONE 10 mg 10 mg PO .TAPER #1 tab.ds.pk 09/16/20 Unknown Rx (6-Day Pack, 21 Tabs)] Montelukast [Singulair] 10 mg PO QPM #14 tablet 04/10/20 Unknown Rx predniSONE [Deltasone] 50 mg PO QDAY #5 tab 04/10/20 Unknown Rx ED Physical Exam - General Limitations: No Limitations General appearance: alert, in no apparent distress - Head Head exam: Present: atraumatic, normocephalic - Eye Eye exam: Present: normal appearance, PERRL, EOMI Pupils: Present: normal accommodation - ENT ENT exam: Present: mucous membranes moist - Neck Neck exam: Present: normal inspection - Respiratory Respiratory exam: Present: normal lung sounds bilaterally, decreased breath sounds, prolonged expiratory. Absent: respiratory distress, wheezes, rales, chest wall tenderness, accessory muscle use - Cardiovascular Cardiovascular Exam: Present: regular rate, normal rhythm. Absent: systolic murmur, diastolic murmur, rubs, gallop - GI/Abdominal GI/Abdominal exam: Present: soft, normal bowel sounds - Rectal Rectal exam: Present: deferred - Extremities Exam Extremities exam: Present: normal inspection - Back Exam Back exam: Present: normal inspection - Neurological Exam Neurological exam: Present: alert, oriented X3 - Psychiatric Psychiatric exam: Present: normal affect, normal mood - Skin Skin exam: Present: warm, dry, intact, normal color. Absent: rash ED Course Vital Signs 04/10/20 04/10/20 01:44 02:00 Temperature 98.2 F Pulse Rate 129 H Pulse Rate [ 115 H Bilateral Throughout] Respiratory 20 Rate Respiratory 20 Rate [Bilateral Throughout] Blood Pressure 121/79 O2 Sat by Pulse 94 Oximetry ED Medical Decision Making - Radiology Data Radiology results: report reviewed [facility] [address] [place] [address] XRay Report Signed Patient: JOSEPH MOE MR#: [id number] : 1990 Acct:[id number] Age/Sex: 30 / M ADM Date: 04/10/20 Loc: ED Attending Dr: Ordering Physician: AYANNA PICKETT Date of Service: 04/10/20 Procedure(s): XR chest 1V ap Accession Number(s): [id number] cc: AYANNA PICKETT Fluoro Time In Minutes: CHEST 1 VIEW 04/10/2020 2:13 AM INDICATION / CLINICAL INFORMATION: Asthma. COMPARISON: 01/28/2020 FINDINGS: SUPPORT DEVICES: None. HEART / MEDIASTINUM: No significant abnormality. LUNGS / PLEURA: No significant pulmonary or pleural abnormality. No pneumothorax. ADDITIONAL FINDINGS: No significant additional findings. IMPRESSION: 1. No acute findings. Signer Name: Leon Delaney MD Signed: 04/10/2020 2:25 AM Workstation Name: [id number] Transcribed By: TL Dictated By: Leon Delaney MD Electronically Authenticated By: Leon Delaney MD Signed Date/Time: 04/10/20224 DD/ 4 TD/TT: - Medical Decision Making No altered mental status, saddle respirations, belly breathing or other signs of impending ventilatory failure. No intubations or recent admissions to the hospital for asthma. Unlikely pneumonia, CHF, COPD, GERD Workup Review include a chest x-ray which was normal she also received steroids and al buterol Therapies: Prednisone 50 mg PO. Albuterol nebulizer Reassessment: Patient improved with albuterol and ipratropium in less than 3 hours. Disposition: Discharge home with return precautions. Advised to follow up with primary care physician within next 24-48 hours. Aside from this acute exacerbation patient has been well controlled on baseline home regimen. Rx short steroid course, albuterol, Singulair, Flovent Critical care attestation.: If time is entered above; I have spent that time in minutes in the direct care of this critically ill patient, excluding procedure time. ED Disposition Clinical Impression: Asthma exacerbation Disposition: DC-01 TO HOME OR SELFCARE Is pt being admited?: No Does the pt Need Aspirin: No Condition: Stable Instructions: Asthma (ED) Prescriptions: predniSONE [Deltasone] 50 mg PO QDAY #5 tab Montelukast [Singulair] 10 mg PO QPM #14 tablet Referrals: PRIMARY CARE, [Primary Care Provider] - 3-5 Days
--- NOTE | 2020-04-10 02:29 | XRay Report ---
CHEST 1 VIEW 04/10/2020 2:13 AM INDICATION / CLINICAL INFORMATION: Asthma. COMPARISON: 01/28/2020 FINDINGS: SUPPORT DEVICES: None. HEART / MEDIASTINUM: No significant abnormality. LUNGS / PLEURA: No significant pulmonary or pleural abnormality. No pneumothorax. ADDITIONAL FINDINGS: No significant additional findings. IMPRESSION: 1. No acute findings. Signer Name: Leon Delaney MD Signed: 04/10/2020 2:25 AM Workstation Name: [id number]
== END 2020-04-10 03:30 | disposition home or self-care (01) ==
LOC: ED 01:40
DX: J45.901 Unspecified asthma with (acute) exacerbation (principal); Z79.899 Other long term (current) drug therapy; Z91.010 Allergy to peanuts; Z98.890 Other specified postprocedural states
CPT/HCPCS: 71045; 94640; 96365; 96375; 99283; J1200; J2930; J3475; J7030; 94644

== ENCOUNTER 2020-06-20 13:03 | Emergency (ER) | payer SELFPAY ==
[2020-06-20 13:12] VITALS: BP 128/78
[2020-06-20] MEDS ORDERED: IPRATROPIUM/ALBUTEROL SULFATE 3 ML AMPUL.NEB IH ONE ×2 (13:20→14:05)
[2020-06-20] MEDS ORDERED: methylPREDNISolone Sod Succinate 125 MG/2 ML INJ IV ONE (13:21)
--- NOTE | 2020-06-20 13:22 | Emergency Department Report ---
ED Asthma HPI - General Chief Complaint: Dyspnea/Respdistress Stated Complaint: ASTHMA ATTACK Time Seen by Provider: 06/20/20 13:20 Source: patient Mode of arrival: Ambulatory Limitations: No Limitations - History of Present Illness Initial Comments: 30-year-old male with past medical history of asthma presents to the ER today complaining of an asthma attack. Patient states that his symptoms started this morning. He reports a nonproductive cough with associated wheezing, shortness of breath and chest tightness. Patient states that he use his albuterol MDI multiple times this morning without much relief of his symptoms. He also states that he used his albuterol nebulizer twice without much relief of his symptoms. He denies any URI symptoms. He feels that his symptoms may have been exacerbated by a dog that he has at home but he has had adult for over a year now. He denies any fever or chills. He reports history of admissions due to his asthma. He states that the last time he was admitted was about 2 months ago. MD Complaint: "asthma attack", shortness of breath, wheezing -: Sudden (this morning) - Related Data Previous Rx's Medication Instructions Recorded Last Taken Type Benzonatate [Tessalon Perles] 100 mg PO Q8HR PRN #30 capsule 10/05/19 Unknown Rx EPINEPHrine [Epipen 2-Omer] 0.3 mg IM DAILY PRN #2 ml 11/15/19 Unknown Rx Ipratropium/Albuterol Sulfate 1 ampul IH Q4HR #20 ampul.neb 12/01/19 Unknown Rx [DUONEB *Not for PRN Use*] predniSONE [Deltasone] 20 mg PO QDAY #5 tab 12/01/19 Unknown Rx Albuterol Sulfate [Proventil Hfa] 2 puff IH Q4HR PRN #1 hfa.aer.ad 12/31/19 Unknown Rx predniSONE [Deltasone] 20 mg PO QDAY 5 Days #5 tab 12/31/19 Unknown Rx Albuterol Sulfate [Proair 90 mcg IH QID PRN #1 aer.pow.ba 01/28/20 Unknown Rx Respiclick] Albuterol Sulfate [Albuterol 0.63% 0.63 mg IH TID PRN #90 ml 04/05/20 Unknown Rx NEBS] Prednisone [predniSONE 10 mg 10 mg PO .TAPER #1 tab.ds.pk 04/05/20 Unknown Rx (6-Day Pack, 21 Tabs)] predniSONE [Deltasone] 50 mg PO QDAY #5 tab 04/10/20 Unknown Rx ALBUTEROL NEB's [Proventil 0.083% 2.5 mg IH TID PRN #20 neb 06/20/20 Unknown Rx NEBS] Albuterol Mdi (or & Nicu Only) 2 puff IH QID PRN #1 inhalation 06/20/20 Unknown Rx [ProAir HFA Inhaler] Montelukast [Singulair] 10 mg PO QPM #14 tablet 06/20/20 Unknown Rx predniSONE [Deltasone] 50 mg PO QDAY #5 tab 06/20/20 Unknown Rx Allergies Allergy/AdvReac Type Severity Reaction Status Date / Time peanut Allergy Swelling Verified 04/05/20 13:23 ED Review of Systems ROS: Stated complaint: ASTHMA ATTACK Other details as noted in HPI Comment: All other systems reviewed and negative Constitutional: denies: chills, fever ENT: denies: ear pain, throat pain Respiratory: cough, shortness of breath, wheezing Cardiovascular: chest pain (Chest tightness) Gastrointestinal: denies: abdominal pain, nausea, diarrhea Genitourinary: denies: urgency, dysuria Musculoskeletal: denies: back pain, joint swelling, arthralgia Skin: denies: rash, lesions Neurological: denies: headache, weakness, paresthesias Psychiatric: denies: anxiety, depression Hematological/Lymphatic: denies: easy bleeding, easy bruising ED Past Medical Hx - Past Medical History Hx Asthma: Yes - Surgical History Additional Surgical History: "Fluid drained from right lung" at age 8 - Social History Smoking Status: Never Smoker Substance Use Type: Alcohol - Medications Home Medications: Home Medications Medication Instructions Recorded Confirmed Last Taken Type Benzonatate [Tessalon Perles] 100 mg PO Q8HR PRN #30 capsule 10/05/19 Unknown Rx EPINEPHrine [Epipen 2-Omer] 0.3 mg IM DAILY PRN #2 ml 11/15/19 Unknown Rx Ipratropium/Albuterol Sulfate 1 ampul IH Q4HR #20 ampul.neb 12/01/19 Unknown Rx [DUONEB *Not for PRN Use*] predniSONE [Deltasone] 20 mg PO QDAY #5 tab 12/01/19 Unknown Rx Albuterol Sulfate [Proventil Hfa] 2 puff IH Q4HR PRN #1 hfa.aer.ad 12/31/19 Unknown Rx predniSONE [Deltasone] 20 mg PO QDAY 5 Days #5 tab 12/31/19 Unknown Rx Albuterol Sulfate [Proair 90 mcg IH QID PRN #1 aer.pow.ba 01/28/20 Unknown Rx Respiclick] Albuterol Sulfate [Albuterol 0.63% 0.63 mg IH TID PRN #90 ml 04/05/20 Unknown Rx NEBS] Prednisone [predniSONE 10 mg 10 mg PO .TAPER #1 tab.ds.pk 04/05/20 Unknown Rx (6-Day Pack, 21 Tabs)] predniSONE [Deltasone] 50 mg PO QDAY #5 tab 04/10/20 Unknown Rx ALBUTEROL NEB's [Proventil 0.083% 2.5 mg IH TID PRN #20 neb 06/20/20 Unknown Rx NEBS] Albuterol Mdi (or & Nicu Only) 2 puff IH QID PRN #1 inhalation 06/20/20 Unknown Rx [ProAir HFA Inhaler] Montelukast [Singulair] 10 mg PO QPM #14 tablet 06/20/20 Unknown Rx predniSONE [Deltasone] 50 mg PO QDAY #5 tab 06/20/20 Unknown Rx ED Physical Exam - General Limitations: No Limitations General appearance: alert, in distress (mild respiratory) - Head Head exam: Present: atraumatic, normocephalic, normal inspection - Eye Eye exam: Present: normal appearance, PERRL, EOMI Pupils: Present: normal accommodation - ENT ENT exam: Present: normal exam, mucous membranes moist - Neck Neck exam: Present: normal inspection, full ROM. Absent: meningismus - Respiratory Respiratory exam: Present: respiratory distress (mild ), wheezes (diffuse expiratory), accessory muscle use - Cardiovascular Cardiovascular Exam: Present: normal rhythm, tachycardia, normal heart sounds - GI/Abdominal GI/Abdominal exam: Present: soft. Absent: distended, tenderness - Neurological Exam Neurological exam: Present: alert, oriented X3, CN II-XII intact, normal gait - Psychiatric Psychiatric exam: Present: normal affect, normal mood - Skin Skin exam: Present: intact ED Course Vital Signs 06/20/20 06/20/20 13:10 13:12 Temperature 98.9 F 98.8 F Pulse Rate 111 H 111 H Respiratory 20 20 Rate Blood Pressure 128/78 Blood Pressure 128/78 [Left] O2 Sat by Pulse 95 95 Oximetry - Reevaluation(s) Reevaluation #1: 06/20/20 14:05 1405 --Pt still with diffuse wheezing after Duoneb x 2. Solumedrol already given. Mag and another duoneb ordered. Labs pending Reevaluation #2: 06/20/20 1546 Pt reports improvement after 3rd Duoneb and mag; HR and SpO2 on cardiac technologist show HR of 94 and SpO2 of 97% on RA. Wheezing has improved. Patient no longer appears to be in resp distress. Patient reports that he is ready to go. Patient will be given rx for prednisone, and he was instructed to continue his MDI or neb treatments every 4-6hrs. Patient afebrile with nl WBC, I do not suspect pneumonia at this time and I do not seen an indication for further testing or antibiotics at this time. Patient stable at time of d/c. 06/20/20 15:46 ED Medical Decision Making - Lab Data Result diagrams: 06/20/20 13:53 06/20/20 13:53 Critical care attestation.: If time is entered above; I have spent that time in minutes in the direct care of this critically ill patient, excluding procedure time. ED Disposition Clinical Impression: Asthma exacerbation Disposition: DC-01 TO HOME OR SELFCARE Is pt being admited?: No Does the pt Need Aspirin: No Condition: Stable Instructions: Asthma, Adult Additional Instructions: Take prednisone as prescribed. Continue albuterol MDI and your nebulizer treatment every 4-6 hours. Take singular as prescribed. I recommend close follow-up with your primary care doctor. Return to the ER if your symptoms changes or worsens in any way. Prescriptions: predniSONE [Deltasone] 50 mg PO QDAY #5 tab Albuterol Mdi (or & Nicu Only) [ProAir HFA Inhaler] 2 puff IH QID PRN #1 inhalation PRN Reason: Shortness Of Breath ALBUTEROL NEB's [Proventil 0.083% NEBS] 2.5 mg IH TID PRN #20 neb PRN Reason: Wheezing Montelukast [Singulair] 10 mg PO QPM #14 tablet Time of Disposition: 15:49
[2020-06-20] MEDS ORDERED: MAGNESIUM SULFATE 0 GM/0 ML BAG IV ONE (14:19)
[2020-06-20] MEDS ORDERED: MAGNESIUM SULFATE 1 GM in SODIUM CHLORIDE 0.9% 50 ML IV ONE (14:30)
[2020-06-20 14:36] LABS: Basophils % (Auto) 0.7 % (0.0-1.8); Eosinophils # (Auto) 0.1 K/mm3 (0.0-0.4); Eosinophils % (Auto) 3.2 % (0.0-4.3); Hematocrit 46.6 % (35.5-45.6); Hemoglobin 15.7 gm/dl (11.8-15.2); Lymphocytes # (Auto) 2.1 K/mm3 (1.2-5.4); Lymphocytes % (Auto) 49.5 % (13.4-35.0); Mean Corpuscular HGB Conc 34 % (32-34); Mean Corpuscular Volume 88 fl (84-94); Monocytes # (Auto) 0.4 K/mm3 (0.0-0.8); Monocytes % (Auto) 9.8 % (0.0-7.3); Platelet Count 293 K/mm3 (140-440); Red Blood Count 5.32 M/mm3 (3.65-5.03); Red Cell Distribution Width 13.1 % (13.2-15.2)
[2020-06-20 15:39] LABS: BUN/Creatinine Ratio 8; Blood Urea Nitrogen 8 mg/dL (9-20); Calcium 9.5 mg/dL (8.4-10.2); Hemolysis Index 3
== END 2020-06-20 16:17 | disposition home or self-care (01) ==
LOC: ED 13:03
DX: J45.909 Unspecified asthma, uncomplicated (principal); Z79.899 Other long term (current) drug therapy; Z91.010 Allergy to peanuts
CPT/HCPCS: 36415; 80048; 85025; 94640; 96365; 96375; 99283; J2930; J3475